=== PATIENT | female | born 1955 | race Caucasian/White ===

== ENCOUNTER 2018-07-27 08:11 | Emergency (ER) | payer BC, SELFPAY ==
[2018-07-27 08:11] VITALS: BP 138/80; PULSE 77; RESP 16; TEMP 36.6; O2SAT 98; BMI 33.9
--- NOTE | 2018-07-27 08:25 | EKG12_ITS ---
Test Reason : DYSRHYTHMIA Blood Pressure : / mmHG Vent. Rate : 060 BPM Atrial Rate : 060 BPM P-R Int : 130 ms QRS Dur : 092 ms QT Int : 388 ms P-R-T Axes : 000 -21 016 degrees QTc Int : 388 ms Normal sinus rhythm Normal ECG Confirmed by FRANCO HOGAN, MICHAEL ([id number]), photo editor PAMELA LEYVA ([id number]) on 07/29/2018 2:58:20 PM Referred By: ALYCE Confirmed By:MICHAEL GAMEZ MD
--- NOTE | 2018-07-27 08:26 | RAD_ITS ---
STUDY: X-RAY - LEFT SHOULDER REASON FOR EXAM: Female, 63 years old. Fall onto left shoulder early this morning TECHNIQUE: 5 view(s) of the shoulder. COMPARISON: None. FINDINGS: Mild chronic AC joint arthrosis. No fracture or dislocation. Normal periarticular soft tissues. Thoracic structures within the field of view exhibit no acute process. RAD/Shoulder min 2 Views IMPRESSION: No acute radiographic abnormality. Electronically Signed: Néstor Carrion, at 9:07 EDT Tel , Service support ,
--- NOTE | 2018-07-27 08:26 | ED.VISSUMM ---
- ER Visit Summary Date of Service: 07/27/18 Chief Complaint: Left shoulder injury, syncope History of Present Illness: The patient is a 63 F patient presents for evaluation of left shoulder injury after syncopal episode. States woke up at 3 AM, she took the dog out, she felt lightheaded symptoms, sat on the bench, states she woke up on the gravel. Pain in left shoulder. [id number]. States that prodromal nausea symptoms. No palpitations or racing heart. No chest pains or shortness of breath. No recent illness. Denies any recent nausea or vomiting. No urinary symptoms. Normal bowel movements. Denies previous similar symptoms in the past. Denies any headaches, neck pain, back pain. Able to ambulate with no difficulties. Drove herself to the ED. Patient states only medication is oxybutynin urine for stress incontinence, takes occasional Mobic. Physical Examination: General: Alert and oriented ?3, no acute distress HEENT: Normocephalic, atraumatic. Moist mucosa membranes. Neck: supple, nontender. Cardiovascular: Regular rate and rhythm, no murmurs Respiratory: Normal breath sounds, symmetric, no distress Abdomen: Soft, nontender, nondistended Extremities: Left upper extremity: No deformities, tender palpation proximal shoulder. Passive full range of motion. No elbow tenderness. No clavicular tenderness. Skin intact. Neurovascular intact distally. Neuro: no focal neurological deficits. Test Results: EKG sinus rate of [address] or T wave changes. QTc 388. Sodium 139, potassium 4.5. Creatinine 1.0. Hemoglobin stable. Emergency Department Course and Treatment: Patient history concerns more vasovagal episode of syncope with prodrome of nausea and lightheaded symptoms. EKG lab workup normal. She is been ambulating in the ED and prior. There is been no return of symptoms. Her shoulder injury x-ray obtained of the left shoulder shows no fracture. Discuss muscle strain. Ice and continue her Motrin at home. She will follow with PCP for further workup for syncopal episode, signs and symptoms discussed to return. All questions were answered. Treatment Plan: [] Disposition: Discharge Impression: 1. Syncope 2. Left shoulder muscle strain This note was generated with [employer] software. It may contain incorrect words, spelling, and punctuation that were not noted in review of the chart prior to signing ED Disposition - Plan for ED Patient: Disposition: Home or Assisted Living Chief Complaint: Syncope Diagnosis: Muscle strain of left shoulder, Syncope Instructions: ED Syncope Vasovagal Referrals: Teofilo Longoria MD [Primary Care Provider] - 2 Days Additional Instructions: Continue your Mobic [id number] for the next 2 days. Continue ice. Normal EKG and labs in the ED. Follow-up with your doctor further workup for syncopal episode. Return if any worsening symptoms.
[2018-07-27 09:04] LABS: Anion Gap 9 (5-15); BUN 24 mg/dL (7-18); Calcium,Total 9.1 mg/dL (8.5-10.1); Chloride 105 mmol/L (98-107); EST Glomerular Filtration Rate 60 mL/min (>60); Est Glom Filt Rate - Afr Amer 73 mL/min (>60); Estimated Creatinine Clearance 51.02 ml/min; Glucose 125 mg/dL (74-106); Potassium 4.5 mmol/L (3.5-5.1); Sodium Level 139 mmol/L (136-145)
[2018-07-27 09:15] LABS: Absolute Lymphocyte Count 1.01 X10^3/ul (0.83-4.51); Absolute Neutrophil Count 5.3 X10^3/uL (2.0-7.7); Basophil# 0.03 X10^3/uL; Basophil% 0.5 % (0-1); Eosinophil# 0.03 X10^3/uL; Eosinophils% 0.5 % (0-5); Hemoglobin 13.5 g/dl (12.0-15.0); Lymphocyte # 1.01 X10^3/ul (4.0); Lymphocyte % 15.2 % (19-41); Mean Corp Hgb Conc 33.8 g/gl (32-36); Mean Corpuscular Hgb 30.3 pg (27.0-32.0); Mean Corpuscular Volume 89.7 fL (81-99); Mean Platelet Vol. 9.4 fl (6.2-12.0); Monocyte# 0.24 X10^3/uL; Monocyte% 3.6 % (0-10); Neutrophil # 5.32 X10^3/uL (2.7-7.7); Neutrophil % 79.9 % (47-70); Platelet Count 294 K/mm3 (150-450); RBC Distribution Width CV 13.1 % (11.6-14.6); RBC Distribution Width SD 42.5 fl (35.1-43.9); Red Blood Count 4.46 M/mm3 (4.2-5.4); White Blood Count 6.7 K/mm3 (4.4-11.0)
[2018-07-27 09:26] LABS: POSITIVE COUNT NO; POSITIVE DIFFERENTIAL NO; POSITIVE MORPHOLOGY NO
[2018-07-27 09:30] VITALS: BP 128/85; PULSE 60; RESP 19; O2SAT 98
== END 2018-07-27 09:39 | disposition home or self-care (01) ==
PROVIDERS: Emergency Provider Emergency Medicine; Family Provider Family Medicine; PCP Family Medicine
DX: R55 Syncope and collapse (principal); S46.912A Strain of unspecified muscle, fascia and tendon at shoulder and upper arm level, left arm, initial encounter; X58.XXXA Exposure to other specified factors, initial encounter; Y93.9 Activity, unspecified; Y92.9 Unspecified place or not applicable; Y99.9 Unspecified external cause status; N39.3 Stress incontinence (female) (male); R11.0 Nausea; Z79.899 Other long term (current) drug therapy; Z90.710 Acquired absence of both cervix and uterus
CPT/HCPCS: 73030; 80048; 85025; 93005; 99284; J7040

== ENCOUNTER → 2020-06-18 10:16 | Outpatient (CLI) | payer BC, SELFPAY | PROVIDERS: PCP Family Medicine; Referring Provider Family Medicine; Visit Provider Family Medicine | DX: Z03.818 Encounter for observation for suspected exposure to other biological agents ruled out (principal) | CPT/HCPCS: 87635; U0003 ==